=== PATIENT | male | born 1935 | race Caucasian/White ===

== ENCOUNTER 2020-04-23 12:44 | Outpatient (CLI) | payer MEDICARE, OTHER ==
[~2020-04-23 12:44] MED LIST: BACL10TA2 PO; ETOD400T PO; NOR5T PO; NORCO10T PO
== END 2020-04-23 23:59 | disposition home or self-care (01) ==
LOC: VAS 12:44
DX: I65.23 Occlusion and stenosis of bilateral carotid arteries (principal)
CPT/HCPCS: 93880